=== PATIENT | female | born 1980 | race African-American/Black ===

== ENCOUNTER 2019-07-05 17:53 | Emergency (ER) | payer OTHER ==
--- NOTE | 2019-07-05 18:06 | PDOC ---
Rapid Medical Evaluation Time Seen by Provider: 07/05/19 18:02 Medical Evaluation: Allergies Allergy/AdvReac Type Severity Reaction Status Date / Time No Known Allergies Allergy Verified 08/22/15 11:03 07/05/19 18:03 I have performed a brief in-person evaluation of this patient. The patient presents with a chief complaint of: itching to palms x7 days Pertinent physical exam findings: VSS. AF. Speaking full sentences. No drooling. Lungs CTAB. No rash present. I have ordered the following: benadryl The patient will proceed to the ED for further evaluation. Discharge Disposition - Diagnosis Pruritic condition - Referrals - Patient Instructions - Post Discharge Activity
[2019-07-05 18:07] VITALS: BP 145/88; PULSE 74; TEMP 97.9; BMI 38.7
[2019-07-05] MEDS ORDERED: diphenhydrAMINE HCL 25 MG CAPSULE (FP) PO ONE (18:12)
[2019-07-05] MEDS: diphenhydrAMINE HCL 25 MG CAPSULE (FP) PO ONE ×2 (18:12→18:17)
--- NOTE | 2019-07-05 18:35 | PDOC ---
History of Present Illness - General Chief Complaint: Itching Stated Complaint: ALLERGIC REACTION Time Seen by Provider: 07/05/19 18:02 History Source: Patient - History of Present Illness Initial Comments: 07/05/19 18:51 Chief complaint: Itching To hands and feet Patient is a healthy 38-year-old female complaining of itching to hands and feet for over a week. No fever, no shortness of breath, no chest pain. Patient states that she saw her doctor who put HER on a steroid cream, and doxycycline for 2 weeks. Patient has been taking Benadryl for the itching but it's not working. She also has some itching on her arms. Patient states she had bumps on her hands but they seem to be getting better. Never had this before and she has not seen a safety representative. GENERAL/CONSTITUTIONAL: No fever, weakness. dizziness HEAD, EYES, EARS, NOSE AND THROAT: No change in vision. No ear pain or discharge. No sore throat. CARDIOVASCULAR: No chest pain RESPIRATORY: No shortness of breath or cough GASTROINTESTINAL: No pain, nausea, vomiting, diarrhea or constipation GENITOURINARY: No dysuria MUSCULOSKELETAL: No neck or back pain SKIN: +rash NEUROLOGIC: No headache, vertigo, loss of consciousness, or loss of sensation. GENERAL: The patient is awake, alert, and fully oriented, in no acute distress. HEAD: Normal with no signs of trauma. EYES: Pupils equal, round and reactive to light, sclera anicteric, conjunctiva clear. ENT: pharynx: no erythema, no exudate, uvula midline NECK: supple CHEST: clear, nontender, rr ABD: soft, nontender BACK: no tenderness or signs of injury EXTREMITIES: Minimal swelling to hands and feet with blanchable mild redness, nonspecific, some areas of urticaria to bilateral forearms no other swelling. No purpura or, petechiae or vesicles. No signs of infection. Normal range of motion, no edema. NEUROLOGICAL: Normal speech, normal gait. SKIN: Warm, Dry Past History - Past Medical History Allergies/Adverse Reactions: Allergies Allergy/AdvReac Type Severity Reaction Status Date / Time No Known Allergies Allergy Verified 08/22/15 11:03 Home Medications: Ambulatory Orders Oseltamivir Phosphate [Tamiflu] 75 mg PO BID #10 capsule 01/17/16 hydrOXYzine HCL [Atarax -] 25 mg PO TID #21 tablet 07/05/19 predniSONE [Deltasone -] 40 mg PO DAILY #10 tablet 07/05/19 COPD: No - Reproductive History (#): 5 Para: 4 Cervical CA: No Dysfunctional Uterine Bleeding: No Ectopic : No Endometrial CA: No Polycystic Ovaries: No Tubal Ligation: No Spontaneous : 1 - Suicide/Smoking/Psychosocial Hx Smoking History: Never smoked Hx Alcohol Use: No Drug/Substance Use Hx: No Substance Use Type: None, Alcohol *Physical Exam - Vital Signs Last Vital Signs Temp Pulse Resp BP Pulse Ox 97.9 F 74 16 145/88 100 07/05/19 18:04 07/05/19 18:04 07/05/19 18:04 07/05/19 18:04 07/05/19 18:04 ED Treatment Course - Medications Given in the ED: ED Medications Discontinued Medications Generic Name Dose Route Start Last Admin Trade Name Freq PRN Reason Stop Dose Admin Diphenhydramine HCl 25 mg 07/05/19 18:06 07/05/19 18:17 Benadryl - PO 07/05/19 18:07 Not Given ONCE ONE Medical Decision Making - Medical Decision Making 07/05/19 18:55 Healthy 38-year-old female with ongoing issue with itching to hands and feet, seen by her doctor and given steroid cream and 2 weeks of doxycycline because she had bumps on her fingers. But there is no sign of infection, cellulitis. Fingerstick is normal. Patient appears well. Patient does have some urticarial rash to bilateral forearms. She states the Benadryl is not helping. We'll give her 5 days of prednisone 40 mg a day, Atarax for itching. Patient will apply Aquaphor to her hands and feet. It is not clear what is causing this. She will follow-up with safety representative. She will also follow-up with her regular doctor. Discussed issues, findings, results, applicable medications and treatments and follow-up. All these were understood and all questions were answered *DC/Admit/Observation/Transfer Diagnosis at time of Disposition: Pruritic condition - Discharge Dispostion Disposition: HOME Decision to Admit order: No - Prescriptions Prescriptions: hydrOXYzine HCL [Atarax -] 25 mg PO TID #21 tablet predniSONE [Deltasone -] 40 mg PO DAILY #10 tablet - Referrals Referrals: hSeri Strong MD [Staff Physician] - - Patient Instructions Additional Instructions: IT's not clear what is causing the itching on your hands and feet. You can continue to take the Benadryl 50 mg every 4-6 hours if it seems to help you. If it is not helping you, you can take the Atarax 25 mg 3 times a day, but this will make you sleepier than the Benadryl. Take the prednisone as directed for the next 5 days It is very important for you to follow-up with the safety representative, call tomorrow to the one listed here or to any listed on your insurance and make an appointment for soonest possible as you need further evaluation of what is causing your symptoms. Return to the ER if fever or feeling sicker - Post Discharge Activity Forms/Work/School Notes: Back to Work
== END 2019-07-05 18:49 | disposition home or self-care (01) ==
LOC: JER 17:53 → JERFT 17:53
DX: L29.8 Other pruritus (principal); L50.9 Urticaria, unspecified
CPT/HCPCS: 82962; 99281-25

== ENCOUNTER 2019-09-10 17:58 | Emergency (ER) | payer OTHER ==
[2019-09-10 18:04] VITALS: BP 133/67; PULSE 75; TEMP 98.3; BMI 39.5
[2019-09-10] MEDS ORDERED: ERYTHROMYCIN 0.5% OPHTHALMIC OINTMENT 3.5 GM TUBE OS ONE (18:21)
[2019-09-10] MEDS ORDERED: ERYTHROMYCIN 0.5% OPHTHALMIC OINTMENT 3.5 GM TUBE ONE (18:23)
--- NOTE | 2019-09-10 18:28 | PDOC ---
History of Present Illness - General Chief Complaint: Eye Problem Stated Complaint: EYE PROBLEM Time Seen by Provider: 09/10/19 18:05 Exam Limitations: No Limitations Past History - Travel Traveled outside of the country in the last 30 days: No Close contact w/someone who was outside of country & ill: No - Past Medical History Allergies/Adverse Reactions: Allergies Allergy/AdvReac Type Severity Reaction Status Date / Time No Known Allergies Allergy Verified 09/10/19 18:04 Home Medications: Ambulatory Orders Oseltamivir Phosphate [Tamiflu] 75 mg PO BID #10 capsule 01/17/16 hydrOXYzine HCL [Atarax -] 25 mg PO TID #21 tablet 07/05/19 predniSONE [Deltasone -] 40 mg PO DAILY #10 tablet 07/05/19 COPD: No - Reproductive History (#): 5 Para: 4 Cervical CA: No Dysfunctional Uterine Bleeding: No Ectopic : No Endometrial CA: No Polycystic Ovaries: No Tubal Ligation: No Spontaneous : 1 - Psycho Social/Smoking Cessation Hx Smoking History: Never smoked Hx Alcohol Use: No Drug/Substance Use Hx: No Substance Use Type: None, Alcohol Review of Systems - Review of Systems Able to Perform ROS?: Yes Comments:: 09/10/19 18:21 CONSTITUTIONAL: Absent: fever, chills, diaphoresis, generalized weakness, malaise, loss of appetite HEENT: Present: eye itching and tearing with drainage. Absent: rhinorrhea, nasal congestion, throat pain, throat swelling, difficulty swallowing, mouth swelling , ear pain, eye pain, visual Changes CARDIOVASCULAR: Absent: chest pain, loss of consciousness, palpitations, irregular heart rate, peripheral edema RESPIRATORY: Absent: cough, shortness of breath, dyspnea with exertion, orthopnea, wheezing, stridor, hemoptysis GASTROINTESTINAL: Absent: abdominal pain, abdominal distension, nausea, vomiting, diarrhea, constipation, melena, hematochezia GENITOURINARY: Absent: dysuria, frequency, urgency, hesitancy, hematuria, flank pain, genital pain MUSCULOSKELETAL: Absent: myalgia, arthralgia, joint swelling SKIN: Absent: rash, itching, pallor HEMATOLOGIC/IMMUNOLOGIC: Absent: easy bleeding, easy bruising, lymphadenopathy, frequent infections ENDOCRINE: Absent: unexplained weight gain, unexplained weight loss, heat intolerance, cold intolerance NEUROLOGIC: Absent: headache, focal weakness or paresthesias, dizziness, unsteady gait, seizure, mental status changes, bladder or bowel incontinence PSYCHIATRIC: Absent: anxiety, depression, suicidal or homicidal ideation, hallucinations. Is the patient limited [place] proficient: No *Physical Exam - Vital Signs Last Vital Signs Temp Pulse Resp BP Pulse Ox 98.3 F 75 18 133/67 99 09/10/19 18:02 09/10/19 18:02 09/10/19 18:02 09/10/19 18:02 09/10/19 18:02 - Physical Exam Comments: 09/10/19 18:24 GENERAL: The patient is awake, alert, and fully oriented, in no acute distress. HEAD: Normal with no signs of trauma. EYES: MARI eyelid is edematous with a stye on the upper middle lid with associated drainage. Pupils equal, round and reactive to light, extraocular movements intact, sclera anicteric, conjunctiva clear. EXTREMITIES: Normal range of motion, no edema. NEUROLOGICAL: Normal speech, normal gait. PSYCH: Normal mood, normal affect. SKIN: Warm, Dry, normal turgor, no rashes or lesions noted. Medical Decision Making - Medical Decision Making 09/10/19 18:28 Patient is a 38-year-old female no past medical history who presents to the ER today for left eye drainage and itching. States been going on for 3 days. She is noted a yellow purulent drainage coming from the top of the left eyelid. Denies fevers, chills, visual changes, dizziness and blurry vision A/P: Stye On exam patient with a stye to the mid left upper lid with associated purulent drainage Will prescribe erythromycin ointment and warm compresses Ophthalmology referral given. Patient to help with her primary care doctor Discharge home I discussed the physical exam findings, ancillary test results and final diagnoses with the patient. I answered all of the patient's questions. The patient was satisfied with the care received and felt comfortable with the discharge plan and treatment plan. The Patient agrees to follow up with the primary care physician/specialist within 24-72 hours. Return precautions were given. Discharge - Discharge Information Problems reviewed: Yes Clinical Impression/Diagnosis: Stye external Qualifiers: Laterality: left Eyelid: upper Qualified Code(s): H00.014 - Hordeolum externum left upper eyelid Condition: Stable Disposition: HOME - Admission No - Follow up/Referral Referrals: Mayank Wilkes MD [Staff Physician] - - Patient Discharge Instructions Patient Printed Discharge Instructions: DI for Hordeolum Additional Instructions: You have a stye. This is an eyelid infection. Please use erythromycin ointment twice a day to the affected eye for one week. Please wash her hands frequently Do not wear contact lenses until your infection clears Follow up with ophthalmology if her symptoms do not improve within a week. Return to the ER for visual changes, blurry vision, or any new or worsening symptoms. - Post Discharge Activity
== END 2019-09-10 18:36 | disposition home or self-care (01) ==
LOC: JERFT 17:58
DX: H00.014 Hordeolum externum left upper eyelid (principal)
CPT/HCPCS: 99281-25

== ENCOUNTER 2023-12-23 07:58 | Emergency (ER) | payer OTHER ==
[2023-12-23 08:20] VITALS: BP 106/71; PULSE 83; RESP 18; TEMP 98.3; BMI 41.9
[2023-12-23] MEDS ORDERED: IBUPROFEN 600 MG TABLET (FP) PO ONE ×2 (09:29→09:48)
[2023-12-23] MEDS ORDERED: AMOXICILLIN 500 MG CAPSULE (FP) PO ONE (10:45)
[2023-12-23] MEDS ORDERED: AMOX TR/POT CLAV 500MG/125MG TABLETS (FP) ONE (11:04)
[2023-12-23] MEDS ORDERED: AMOXICILLIN 500 MG CAPSULE (FP) ONE (11:20)
== END 2023-12-23 11:27 | disposition home or self-care (01) ==
LOC: JERFT 07:58
DX: J02.0 Streptococcal pharyngitis (principal); Z20.822 Contact with and (suspected) exposure to COVID-19
CPT/HCPCS: 0241U-QW; 87651; 99283-25

== ENCOUNTER 2024-05-18 02:15 | Emergency (ER) | payer OTHER ==
[2024-05-18 02:23] VITALS: BMI 41.4
[2024-05-18] MEDS ORDERED: DEXAMETHASONE SOD PHOSPHATE 10 MG/1 ML VIAL ONE (03:24)
[2024-05-18] MEDS: DEXAMETHASONE SOD PHOSPHATE 10 MG/1 ML VIAL IVPUSH ONE (03:39)
[2024-05-18] MEDS ORDERED: RACEPINEPHRINE IH SOL 2.25% 11.25 MG/0.5 ML VIAL NEB ONE (03:43)
[2024-05-18 03:46] LABS: BASO % 0.8 % (0-2.0); EOS % 1.4 % (0-4.5); HEMATOCRIT 35.3 % (32.4-45.2); HEMOGLOBIN 11.8 GM/dL (10.7-15.3); MCH 26.9 pg (25.7-33.7); MCHC 33.4 g/dl (32.0-36.0); MEAN CELL VOLUME 80.5 fl (80-96); MEAN PLT VOLUME 7.4 fl (7.5-11.1); MONO % 6.7 % (3.8-10.2); NEUT % 75.1 % (42.8-82.8); PLATELET COUNT 324 10^3/uL (134-434); RBC 4.39 M/mm3 (3.60-5.2); RDW 18.7 % (11.6-15.6); WHITE BLOOD COUNT 11.5 K/mm3 (4.0-10.0)
[2024-05-18] MEDS: RACEPINEPHRINE IH SOL 2.25% 11.25 MG/0.5 ML VIAL IH ONE (03:46)
[2024-05-18 04:05] LABS: POTASSIUM 4.2 mmol/L (3.5-5.1)
[2024-05-18 04:06] LABS: ALBUMIN 3.9 g/dl (3.4-5.0); CALCIUM 9.8 mg/dL (8.5-10.1)
[2024-05-18 04:07] LABS: BLOOD UREA NITROGEN 16.9 mg/dL (7-18)
[2024-05-18 04:09] LABS: CREATININE 1.1 mg/dL (0.55-1.3)
[2024-05-18 04:11] LABS: BILIRUBIN,TOTAL 0.6 mg/dL (0.2-1)
[2024-05-18] MEDS: PENICILLIN G BENZATHINE 1,200,000 UNIT/2 ML PFS IM ONE (04:18)
[2024-05-18 05:42] VITALS: BP 103/72; PULSE 88; RESP 14; TEMP 98.5
== END 2024-05-18 05:49 | disposition home or self-care (01) ==
LOC: JER 02:15
PROC: 3E033GC Introduction of Other Therapeutic Substance into Peripheral Vein, Percutaneous Approach (ICD-10-PCS; principal; 2024-05-18)
PROC: 3E02329 Introduction of Other Anti-infective into Muscle, Percutaneous Approach (ICD-10-PCS; 2024-05-18)
DX: J02.0 Streptococcal pharyngitis (principal); H92.01 Otalgia, right ear; R51.9 Headache, unspecified
CPT/HCPCS: 36415; 80053; 85025; 87651; 99284-25; J1100